=== PATIENT | male | born 1995 | race Caucasian/White ===

== ENCOUNTER 2016-10-19 03:10 | Emergency (ER) | payer OTHER ==
[~2016-10-19] VITALS: Ht 188 cm; Wt 115.0 kg
[2016-10-19 03:23] VITALS: TEMP 36.6; Ht 188 cm; Wt 115.0 kg
[2016-10-19 03:38] LABS: MANUAL MICROSCOPIC REQUIRED? NO; REVIEW REQ? NO; URINE APPEARANCE CLOUDY (CLEAR); URINE BILIRUBIN NEG (NEG); URINE COLOR DK YELLOW; URINE EPITHELIAL CELL AUTO 20-30 /lpf (0-5); URINE NITRITE NEG (NEG); URINE SPECIFIC GRAVITY 1.036 (1.000-1.030); UROBILINOGEN NEG (NEG); ZZUR CULT IF INDIC CLEAN CATCH NO
[2016-10-19] MEDS ORDERED: ONDANSETRON INJ 2 MG/ML 2 ML VIAL IV STA (03:59)
[2016-10-19] MEDS ORDERED: HYDROmorphone INJ 1 MG/ML SYR IV STA (03:59)
[2016-10-19 04:01] LABS: HEMATOCRIT 42.4 % (42-52); MEAN CELL VOLUME 87.4 fL (80-100); MEAN CORPUSCULAR HEMOGLOBIN 28.9 pg (25-34); MEAN PLATELET VOLUME 9.7 fL (7.4-10.4); PLATELET COUNT 221 K/uL (130-400); RED BLOOD COUNT 4.85 M/uL (4.7-6.1)
[2016-10-19 04:06] LABS: BUN/CREATININE RATIO 14.2 (10-20); CALCIUM 8.5 mg/dl (8.5-10.1); POTASSIUM 3.3 mmol/L (3.5-5.1)
[2016-10-19] MEDS ORDERED: OXYC1TAB3 PO (05:39)
[2016-10-19 05:41] VITALS: BP 158/82; PULSE 64; O2SAT 97
--- NOTE | 2016-10-19 06:12 | EMERGENCY ROOM VISIT NOTE ---
History Report prepared by Lu: Maxime Cherry Under the Supervision of: Dr. Alyx Rivera M.D. First contact with patient: 03:36 Chief Complaint: FLANK PAIN Stated Complaint: FLANK PAIN History of Present Illness The patient is a 21 year old male who presents to the Emergency Room with complaints of right flank pain that began this morning at 0215, roughly 1 hour prior to arrival. The patient describes his pain as "sharp" and states that it does not radiate from the right flank. He rates the pain as a 20 out of 10 in severity. He also complains of an increase in urinary frequency and urgency. The patient has not taken any medications for his pain. 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 A total of 10 systems reviewed and were otherwise negative. Past Medical & Surgical No significant past medical/surgical histories. Family History No pertinent family histories discussed. Social History Smoking Status: Never Smoker Marital Status: single Housing Status: lives with roommate Occupation Status: [employer] student Current/Historical Medications Scheduled PRN Oxycodone Immediate Rel Tab (Roxicodone Ir), 1-2 TAB PO Q4H PRN for Severe Pain Allergies Coded Allergies: No Known Allergies (Unverified , 10/19/16) Physical Exam Vital Signs Date Time Temp Pulse Resp B/P Pulse Ox O2 Delivery O2 Flow Rate FiO2 10/19/16 05:41 64 18 158/82 97 Room Air 10/19/16 04:50 72 18 172/80 93 Room Air 10/19/16 03:23 36.6 80 22 167/102 98 Room Air Physical Exam Vital signs reviewed. General: Well-appearing 21-year-old male, in no significant distress. HEENT: No scleral icterus, PERRLA, neck supple. Atraumatic. Cardiovascular: Regular rate and rhythm, no extra sounds. Pulmonary: Clear to auscultation bilaterally, normal work of breathing. Abdomen: Soft, mild RLQ tenderness, no rebounding or guarding, nondistended, positive bowel sounds. Musculoskeletal: Atraumatic, no peripheral edema. Back: No CVA tenderness. Atraumatic Neurologic: Patient awake alert and oriented x 3 Skin: Warm, dry, no rash Medical Decision & Procedures ER Provider Diagnostic Interpretation: Radiology results as stated below per my review and radiologist interpretation: CT ABDOMEN & PELVIS: Impression: There is a 1-2 mm calculus at the right UVJ which causes minimal hydroureteronephrosis. Additional Findings: The visualized lower thorax is unremarkable. The liver, gallbladder, spleen, pancreas, and adrenal glands are unremarkable. The appendix is unremarkable. The stomach, small bowel, colon are unremarkable. No free fluid. No free air. No acute osseous abnormality. Radiologist: Kishan Red MD. Laboratory Results 10/19/16 03:20 10/19/16 03:20 Test 10/19/16 03:20 10/19/16 03:26 Red Blood Count 4.85 M/uL (4.7-6.1) Mean Corpuscular Volume 87.4 fL (80-100) Mean Corpuscular Hemoglobin 28.9 pg (25-34) Mean Corpuscular Hemoglobin Concent 33.0 g/dl (32-36) RDW Standard Deviation 41.1 fL (36.4-46.3) RDW Coefficient of Variation 12.8 % (11.5-14.5) Mean Platelet Volume 9.7 fL (7.4-10.4) Anion Gap 7.0 mmol/L (3-11) Est Creatinine Clear Calc Drug Dose 158.9 ml/min Estimated GFR () 125.0 Estimated GFR (Non- 107.9 BUN/Creatinine Ratio 14.2 (10-20) Calcium Level 8.5 mg/dl (8.5-10.1) Urine Color DK YELLOW Urine Appearance CLOUDY (CLEAR) Urine pH 6.0 (4.5-7.5) Urine Specific [place] 1.036 (1.000-1.030) Urine Protein TRACE (NEG) Urine Glucose (UA) NEG (NEG) Urine Ketones NEG (NEG) Urine Occult Blood 3+ (NEG) Urine Nitrite NEG (NEG) Urine Bilirubin NEG (NEG) Urine Urobilinogen NEG (NEG) Urine Leukocyte Esterase NEG (NEG) Urine WBC (Auto) 1-5 /hpf (0-5) Urine RBC (Auto) >30 /hpf (0-4) Urine Hyaline Casts (Auto) 1-5 /lpf (0-5) Urine Epithelial Cells (Auto) 20-30 /lpf (0-5) Urine Bacteria (Auto) NEG (NEG) Laboratory results per my review. Medications Administered Medications (Trade) Dose Ordered Sig/Letty Route Start Time Stop Time Status Last Admin Dose Admin Hydromorphone HCl (Dilaudid Inj) 1 mg NOW STAT IV 10/19/16 03:59 10/19/16 04:00 DC 10/19/16 04:06 1 MG Ondansetron HCl (Zofran Inj) 4 mg NOW STAT IV 10/19/16 03:59 10/19/16 04:00 DC 10/19/16 04:05 4 MG ED Course 0359: Past medical records reviewed. The patient was evaluated in room B3. A complete history and physical examination was performed. 0359: Ordered Zofran 4 mg IV, Dilaudid 1 mg IV. 0551: Upon reevaluation, the patient appeared to have improvement of his symptoms. I discussed findings with him. He verbalized agreement of the treatment plan. The patient was discharged home. Medical Decision Differential diagnosis: Etiologies such as renal colic, appendicitis, diverticulitis, mesenteric ischemia, aortic pathology, infections, inflammatory bowel disease, PUD, biliary pathology, UTI, as well as others were entertained. This patient was evaluated and appeared to be in significant discomfort. IV access was obtained and laboratory work was drawn. Patient was hydrated with normal saline solution, given IV Dilaudid and Zofran. Patient's physical exam is consistent with ureteral colic. The patient was sent for CAT scan of the abdomen and pelvis which is significant for a one to 2 mm stone at the right UVJ. On reevaluation, the patient was feeling much improved. Urinalysis is indicative of blood. Laboratory work is fairly unrevealing. Patient was discharged with a prescription for OxyIR. He was advised not to drive on this medication. He will use ibuprofen as needed for less severe pain. He will drink plenty of fluids and follow-up with [facility] and urology as needed. He will return to the ER for worsening of symptoms or any medical concerns. Impression Primary Impression: Right ureteral stone Additional Impression: Renal colic on right side Scribe Attestation The scribe's documentation has been prepared under my direction and personally reviewed by me in its entirety. I confirm that the note above accurately reflects all work, treatment, procedures, and medical decision making performed by me. Departure Information Dispostion Home / Self-Care Prescriptions Oxycodone Immediate Rel Tab (ROXICODONE IR) 5 Mg Tab 1-2 TAB PO Q4H Y for Severe Pain, #24 TAB Prov: Alyx Rivera M.D. 10/19/16 Forms HOME CARE DOCUMENTATION FORM, IMPORTANT VISIT INFORMATION Patient Instructions Kidney Stones, My [facility] Additional Instructions Diagnosis: Kidney stone Strain all of your urine and take the stone for analysis. Increase fluids. Ibuprofen 600 mg every 6 hours as needed for pain. Oxy IR 1-2 tablets every 4- 6 hrs as needed for worse pain. No driving, working, or alcohol use with Oxy IR. Follow up with S and urology if it has not passed in 5-7 days or sooner for worsening symptoms. Follow up sooner for fever >101, vomiting, or significant increase in pain not controlled with medication. Problem Qualifiers
--- NOTE | 2016-10-19 07:47 | DIAGNOSTIC IMAGING REPORT ---
CT SCAN OF THE ABDOMEN AND PELVIS WITHOUT CONTRAST CLINICAL HISTORY: Right flank pain COMPARISON STUDY: No previous studies for comparison. TECHNIQUE: CT scan of the abdomen and pelvis was performed from the lung bases to the proximal femurs. Images are reviewed in the axial, sagittal, and coronal planes. IV contrast was not administered for this examination. CT DOSE: 1439.46 mGy.cm FINDINGS: Lower chest: There are minor dependent atelectatic changes. Liver: The unenhanced liver is normal in size, contour, and attenuation. There is no intrahepatic biliary ductal dilatation. Gallbladder: Unremarkable. Spleen: Normal in size and attenuation. Pancreas: Unremarkable. Adrenal glands: Unremarkable. Kidneys: There is a punctate upper pole right renal calculus. There is minimal fullness the right renal collecting system. There is a 2 mm calculus at the level of the right ureterovesical junction. Bowel: There are no transition zones indicate bowel obstruction. The appendix appears normal. There is no acute diverticulitis. Peritoneum: There is no intraperitoneal free air or abdominal ascites. Vasculature: The abdominal aorta is normal in course and caliber. Adenopathy: None. Pelvic viscera: The bladder, and pelvic viscera are unremarkable. Skeletal structures: No destructive osseous lesions are seen. IMPRESSION: 1. 2 mm calculus at the level of the right ureterovesical junction with minimal secondary obstructive changes 2. Punctate upper pole right renal calculus 3. No evidence of bowel obstruction. No evidence of free air. Normal appendix. Electronically signed by: Ryan Prince M.D. 10/19/2016 7:45 AM Dictated Date/Time: 10/19/2016 7:41 AM
== END 2016-10-19 05:47 | disposition home or self-care (01) ==
LOC: EDBD 03:10 → C.EDB 03:12
DX: N20.1 Calculus of ureter (principal); N23 Unspecified renal colic

== ENCOUNTER 2017-05-02 22:30 | Inpatient (IN) | payer OTHER ==
[~2017-05-02] VITALS: Ht 188 cm; Wt 115.0 kg
--- NOTE | 2017-05-02 23:03 | EMERGENCY ROOM VISIT NOTE ---
History Report prepared by Lu: Linette Brown Under the Supervision of: Dr. Rafi Mclean M.D. First contact with patient: 22:38 Chief Complaint: MENTAL HEALTH EVALUATION Stated Complaint: MHID History of Present Illness The patient is a 21 year old male who presents to the Emergency Room for evaluation of depression. Notes girlfriend broke up with him last month. He says he was dealing with this alright until today when he started feeling very depressed. He notes he does not know why he all of the sudden started feeling sad. Notes this rapidly worsened throughout the day until it get severe this evening. He used a razor blade and tried cutting his left wrist. Bleeding with this controlled with pressure. Police arrived and brought him to ED. He states he is now not sure if this was a suicide attempt or not. He denies history of depression nor suicide nor mental health evals in past. Admits his mother knows he has been feeling sad recently. Nothing makes depression better nor worse. Denies drug/etoh use other than periodic marijuana. No medication overdose. No hallucinations. Denies medical issues other than ankle injury which is old. No medications on a daily basis. Source of History: patient Onset: this evening Position: other (global) Quality: other (global) Timing: other (episode) Note: The patient denies medication overdose and hallucinations. Review of Systems See HPI for pertinent positives & negatives. A total of 10 systems reviewed and were otherwise negative. Past Medical & Surgical Medical Problems: (1) Depression Family History Patient reports no known family medical history. Social History Smoking Status: Never Smoker Drug Use: marijuana Marital Status: single Housing Status: lives with roommate Occupation Status: [employer] student Current/Historical Medications No Active Prescriptions or Reported Meds Allergies Coded Allergies: No Known Allergies (Unverified , 05/02/17) Physical Exam Vital Signs Date Time Temp Pulse Resp B/P (MAP) Pulse Ox O2 Delivery O2 Flow Rate FiO2 05/03/17 01:29 82 18 157/86 98 Room Air 05/02/17 22:43 36.6 93 18 160/103 97 Room Air Physical Exam GENERAL: Patient is well appearing and in no acute distress. HEENT: No acute trauma, normocephalic atraumatic, mucous membranes moist, no nasal congestion, no scleral icterus. NECK: No stridor, no adenopathy, no meningismus, trachea is midline. LUNGS: No dyspnea. Clear to auscultation and equal bilaterally. No wheeze, no rhonchi. HEART: Regular rate and rhythm. No murmurs, rubs, gallops appreciated. ABDOMEN: Soft, nontender, bowel sounds positive, no masses appreciated, no peritonitis. BACK: No midline tenderness, no CVA tenderness EXTREMITIES: Normal motion all extremities, no cyanosis, no edema. NEUROLOGIC: Alert and oriented, no acute motor or sensory deficits, no focal weakness, cranial nerves grossly intact. SKIN: 4 cm superficial abrasions with no tendon/nerve/arterial injury left wrist. No rash, no jaundice, no diaphoresis. Psych: Depressed, unsure if suicidal, denies hallucination, denies homicidal ideation Medical Decision & Procedures Laboratory Results 05/02/17 23:43 Red Blood Count 4.84, Mean Corpuscular Volume 87.6, Mean Corpuscular Hemoglobin 29.1, Mean Corpuscular Hemoglobin Concent 33.3, Mean Platelet Volume 9.8, Neutrophils (%) (Auto) 67.9, Lymphocytes (%) (Auto) 20.2, Monocytes (%) (Auto) 8.8, Eosinophils (%) (Auto) 2.6, Basophils (%) (Auto) 0.5, Neutrophils # (Auto) 7.02, Lymphocytes # (Auto) 2.09, Monocytes # (Auto) 0.91, Eosinophils # (Auto) 0.27, Basophils # (Auto) 0.05 05/02/17 23:43 Test 05/02/17 22:45 05/02/17 23:43 Urine Color DK YELLOW Urine Appearance CLOUDY (CLEAR) Urine pH 5.5 (4.5-7.5) Urine Specific [place] 1.036 (1.000-1.030) Urine Protein 2+ (NEG) Urine Glucose (UA) NEG (NEG) Urine Ketones TRACE (NEG) Urine Occult Blood NEG (NEG) Urine Nitrite NEG (NEG) Urine Bilirubin 1+ (NEG) Urine Urobilinogen NEG (NEG) Urine Leukocyte Esterase NEG (NEG) Urine WBC (Auto) 1-5 /hpf (0-5) Urine RBC (Auto) 0-4 /hpf (0-4) Urine Hyaline Casts (Auto) 10-30 /lpf (0-5) Urine Epithelial Cells (Auto) >30 /lpf (0-5) Urine Bacteria (Auto) NEG (NEG) Urine Renal Epithelial Cells /lpf (0-5) Urine Pathogenic Casts 5-10 GRANULAR CASTS /lpf (0) Urine Mucus PRESENT (NONE PRSENT) Urine Opiates Screen NEG (NEG) Urine Methadone, Qualitative NEG (NEG) Urine Barbiturates NEG (NEG) Urine Phencyclidine (PCP) Level NEG (NEG) Ur Amphetamine/Methamphetamine NEG (NEG) MDMA (Ecstasy) Screen NEG (NEG) Urine Benzodiazepines Screen NEG (NEG) Urine Cocaine Metabolite NEG (NEG) Urine Marijuana (THC) POS (NEG) White Blood Count 10.34 K/uL (4.8-10.8) Red Blood Count 4.84 M/uL (4.7-6.1) Hemoglobin 14.1 g/dL (14.0-18.0) Hematocrit 42.4 % (42-52) Mean Corpuscular Volume 87.6 fL (80-100) Mean Corpuscular Hemoglobin 29.1 pg (25-34) Mean Corpuscular Hemoglobin Concent 33.3 g/dl (32-36) Platelet Count 235 K/uL (130-400) Mean Platelet Volume 9.8 fL (7.4-10.4) Neutrophils (%) (Auto) 67.9 % Lymphocytes (%) (Auto) 20.2 % Monocytes (%) (Auto) 8.8 % Eosinophils (%) (Auto) 2.6 % Basophils (%) (Auto) 0.5 % Neutrophils # (Auto) 7.02 K/uL (1.4-6.5) Lymphocytes # (Auto) 2.09 K/uL (1.2-3.4) Monocytes # (Auto) 0.91 K/uL (0.11-0.59) Eosinophils # (Auto) 0.27 K/uL (0-0.5) Basophils # (Auto) 0.05 K/uL (0-0.2) RDW Standard Deviation 41.7 fL (36.4-46.3) RDW Coefficient of Variation 13.0 % (11.5-14.5) Immature Granulocyte % (Auto) 0.0 % Immature Granulocyte # (Auto) 0.00 K/uL (0.00-0.02) Anion Gap 8.0 mmol/L (3-11) Est Creatinine Clear Calc Drug Dose 170.9 ml/min Estimated GFR () 136.5 Estimated GFR (Non- 117.8 BUN/Creatinine Ratio 8.0 (10-20) Calcium Level 8.8 mg/dl (8.5-10.1) Total Bilirubin 0.5 mg/dl (0.2-1) Aspartate Amino Transf (AST/SGOT) 21 U/L (15-37) Alanine Aminotransferase (ALT/SGPT) 29 U/L (12-78) Alkaline Phosphatase 92 U/L (45-117) Total Protein 6.9 gm/dl (6.4-8.2) Albumin 4.0 gm/dl (3.4-5.0) Globulin 2.8 gm/dl (2.5-4.0) Albumin/Globulin Ratio 1.4 (0.9-2) Thyroid Stimulating Hormone (TSH) 2.860 uIu/ml (0.300-4.500) Salicylates Level < 1.7 mg/dl (2.8-20) Acetaminophen Level < 2 ug/ml (10-30) Ethyl Alcohol mg/dL < 3.0 mg/dl (0-3) Laboratory results as reviewed by me. ED Course 2238: The patient was evaluated in room A6. A complete history and physical exam was performed. 0007: I reevaluated the patient and he is agreeable to inpatient treatment. 0228: The patient was accepted to [address] [place] [address]. Medical Decision Differential: Mood Disorder, Overdose, Infectious, Electrolyte Abnormality, Cardiac, Hepatic, Endocrine, Toxicologic, Neurologic, amongst other pathologies entertained. 21 yr old depressed male with worsening depression over the last month. Clearly minimizing what is much more issues than he is willing to let on. No set up support as outpatient. Medically clear. I discussed my concerns with him and after discussion between him, Isacc and myself patient wishing to sign self in voluntarily. Medication Reconcilliation Current Medication List: was personally reviewed by me Blood Pressure Screening Patient's blood pressure: Elevated blood pressure Will be further monitored. Impression Primary Impression: Depression Additional Impression: Deliberate self-cutting Scribe Attestation The scribe's documentation has been prepared under my direction and personally reviewed by me in its entirety. I confirm that the note above accurately reflects all work, treatment, procedures, and medical decision making performed by me. Departure Information Dispostion Mental Health Acute Care Prescriptions No Active Prescriptions or Reported Meds Referrals [facility] (PCP) Patient Instructions My [facility] Problem Qualifiers
[2017-05-02 23:18] LABS: URINE APPEARANCE CLOUDY (CLEAR); URINE COLOR DK YELLOW; URINE EPITHELIAL CELL AUTO >30 /lpf (0-5); URINE NITRITE NEG (NEG); URINE PH 5.5 (4.5-7.5); URINE SPECIFIC GRAVITY 1.036 (1.000-1.030); UROBILINOGEN NEG (NEG); ZZUR CULT IF INDIC CLEAN CATCH NO
[2017-05-03 00:01] LABS: MANUAL MICROSCOPIC REQUIRED? NO; REVIEW REQ? YES; URINE BILIRUBIN 1+ (NEG)
[2017-05-03 00:03] LABS: BASO % 0.5 %; BASO ABS # 0.05 K/uL (0-0.2); COMPLETE YES; EOS % 2.6 %; HEMATOCRIT 42.4 % (42-52); LYMPH % 20.2 %; LYMPH ABS # 2.09 K/uL (1.2-3.4); MEAN CELL VOLUME 87.6 fL (80-100); MEAN CORPUSCULAR HEMOGLOBIN 29.1 pg (25-34); MEAN CORPUSCULAR HGB CONC 33.3 g/dl (32-36); MEAN PLATELET VOLUME 9.8 fL (7.4-10.4); MONO % 8.8 %; NEUT % 67.9 %; PLATELET COUNT 235 K/uL (130-400); RED BLOOD COUNT 4.84 M/uL (4.7-6.1); WHITE BLOOD COUNT 10.34 K/uL (4.8-10.8)
[2017-05-03 00:20] LABS: URINE MUCUS PRESENT (NONE PRSENT); URINE PATH CASTS 5-10 GRANULAR CASTS /lpf (0)
[2017-05-03 00:21] LABS: CALCIUM 8.8 mg/dl (8.5-10.1); CREATININE 0.93 mg/dl (0.60-1.40); POTASSIUM 3.5 mmol/L (3.5-5.1)
[2017-05-03 00:31] LABS: ALB/GLOB RATIO 1.4 (0.9-2); THYROID STIMULATING HORMONE 2.86 uIu/ml (0.300-4.500)
[2017-05-03 00:33] LABS: ACETAMINOPHEN < 2 ug/ml (10-30)
[2017-05-03 00:33] LABS: BENZODIAZEPINE, URINE NEG (NEG); COCAINE,URINE NEG (NEG); PHENCYCLIDINE, URINE NEG (NEG)
[2017-05-03] MEDS ORDERED: NURSING VERBAL MED ORDER ONE (02:30)
[2017-05-03 02:58] VITALS: BP 138/79; PULSE 89; TEMP 36.6; Ht 188 cm; Wt 115.0 kg
[2017-05-03 03:10] VITALS: O2SAT 99
[2017-05-03] MEDS ORDERED: SODIUM CHLORIDE 0.65% NA SOLN 45 ML (OCEAN) PRN (03:30)
[2017-05-03] MEDS ORDERED: MAGNESIUM HYDROXIDE SUSP 30 ML UDC PO PRN (03:30)
[2017-05-03] MEDS ORDERED: BISMUTH SUBSALICYLATE PER ML OMNICELL CHARGE PO PRN (03:30)
[2017-05-03] MEDS ORDERED: ACETAMINOPHEN 325 MG TAB PO PRN (03:30)
[2017-05-03] MEDS ORDERED: hydrOXYzine HCL 25 MG TAB PO PRN ×2 (03:30)
[2017-05-03] MEDS ORDERED: ALUMINUM/MAGNESIUM SUSP 30 ML UDC PO PRN (03:30)
[2017-05-03 06:51] VITALS: BP_SYST 132; BP_SYST 143; BP_DIAS 68; BP_DIAS 76; PULSE 59; PULSE 80; TEMP 36.6
--- NOTE | 2017-05-03 10:41 | Medical Student: BHU Only ---
Psychiatric Evaluation IDENTIFYING DATA: Kutr Tidwell is a 21-year-old male who currently lives in [place] as a student at [employer]. He lives in the dorms on campus. Kurt Tidwell was admitted to the [facility] on a 201 voluntary commitment. Kurt Tidwell was brought to the hospital after friends called EMS for help when Kurt told them he cut his wrist. Information provided by Kurt is perceived to be accurate and reliable. CHIEF COMPLAINT: "Really sad". HISTORY OF PRESENT ILLNESS: Kurt is a 21 year old male [employer] [facility] [employer] student who is voluntarily admitted to the [facility] secondary to cutting his left wrist on 05/02/17 at 2300. The patient recently broke up with his girlfriend of 2 years this past March. The patient and his ex-girlfriend met at a branch [facility]. They had been fighting a lot recently and in March she told him she wanted to break up. The patient has not had any contact with her since the breakup. Since that time , he reports his mood has been "going up and down everyday", with an overall trend downward. He has not identified any triggers/reason for why he has good days or bad days. He has no prior psychiatric history and has never been treated for depression. Last night, he reports being very anxious and "in a fog." He then took a boxcutter and cut his left wrist while in his dorm room. He shortly thereafter called a friend and told him what he had done. The friend called EMS who brought him the [facility] for evaluation. No stitches were needed as it was a superficial cut to his wrist. Initially, he reported that he was unsure if this was a suicide attempt. He has since decided that it was not an attempt at suicide, but rather "a way to make all the anxious feelings fade." The patient denied being under the influence of any substances at the time of cutting his wrist. He no longer has any feelings of wanting to hurt himself. He is unsure what prompted his cutting last night as there were no specific triggering events throughout the day. The patient denies feeling paranoid, having hallucinations/delusions, belinda, or obsessive/compulsive behavior. He has been sleeping an average of 6-10 hours/ night. His appetite has been good. He feels rested after sleeping. He has lost 19lbs over the past two months after recently starting an exercise program. Risk of violence to self within the last 6 months: Yes, patient cut his left wrist with a drink box mechanic at 2300 on 05/02/17. Risk of violence to others within the last 6 months: No CURRENT MEDICATIONS: 1. None PAST PSYCHIATRIC HISTORY: Current outpatient mental health treatment: None Prior outpatient mental health treatment: None Prior psychiatric hospitalizations: None Prior medication trials: None Prior suicide attempts: None Access to weapons: ream cutter. PAST MEDICAL HISTORY: medical history: Kidney stone in 2016 surgical history: None history of head injury: None history of seizure: None history of iv drug use: None ALLERGIES: None FAMILY HISTORY: Mental Health: Older brother has high functioning autism. He is currently in graduate school Substance Abuse: None Suicide: None SUBSTANCE USE HISTORY: Tobacco use hx: None Caffeine use hx: Occassional Alcohol use hx: Occassional. Claims he drinks every 1-2 months Marijuana use hx: Occassional. Does not smoke regularly. Illicit drug use hx: None PERSONAL HISTORY: Born: [facility]. Parents still live there. Early development: None Siblings: One older brother who has autism and is a student life dean. Education: Patient is a student at [employer] studying [employer]. His GPA is 2.6. Work History: Student Relationship History: Recent breakup with girlfriend of 2 years Children: None Legal History: None Physical abuse history: No Emotional/psychological abuse history: No Sexual abuse history: No ROS: CONSTITUTIONAL: Depressed. CARDIOVASCULAR: No CP, palpitations, lightheadedness. RESPIRATORY: No SOB or wheezing. Denies cough or sore throat GASTROINTESTINAL: Recent diarrhea secondary to Abx use with otitis media infection. Diarrhea has since resolved. NEUROLOGICAL: Denies headaches or visual changes MUSCULOSKELETAL: No joint or muscle aches. PSYCHIATRIC: Depressed and anxious ENDOCRINOLOGIC: Recent intentional weight loss of 19lbs over past 2 months. ALLERGIES: None Labs, studies, imaging: Positive for marijuana on toxicology screen. PHYSICAL EXAM: MENTAL STATUS EXAM: Appearance is that of a disheveled male who appears his stated age. The patient is cooperative with the interview. Eye contact is present throughout interview. Motor behavior is normal. Speech: volume and rate, and tone are normal. Affect: Flattened. Mood: Depressed. Thought process: goal directed and logical. His speech was a constant rate and seemed to flow freely. Thought content: Kurt did not exhibit any signs of a thought disorder. He was able to answer questions appropriately and directly. There did not appear to be any thought blocking. Perception: Normal perception. Symptoms like illusions, depersonalization, or misinterpretations were not elicited during exam. Cognition: The patient is oriented to person, time, and place. He was able to answer questions and recall past events of his life without difficulty. INVENTORY OF ASSETS: * strengths: Kurt appears to be a bright young man. He has friends at school that care about him (i.e. A friend called an ambulance for him to come to the hospital after cutting his left wrist.) He seems to have a supportive family who is coming to visit him today. He has a good exercise routine and has recently lost 20lbs over a two month period. He seems motivated in life and does not display many symptoms of severe depresion. * resources: Patient has friends at school and a supportive family at home. * needs: Patient will need set up with outpatient support through a counselor. We will set this up for him prior to discharge. RISK ASSESSMENT: * Risk factors: Male, and single. * Protective factors: Stable relationships, Supportive family, Good rapport with provider, and impulsive attempt. DIAGNOSTIC IMPRESSION: The patient is a 21 year old male who presents after making a superficial cut on his left wrist with a drink box mechanic. This incident occurred as a result of the patient trying to "distract himself" from his depressive and anxiety symptoms that have been ongoing since a breakup with his ex-girlfriend in March. The patient denies this being a suicide attempt, but rather states he was "in a fog ". This appears to be an impulsive action and not something Kurt had planned on doing. I do not believe he is suicidal. I believe he is suffering from a major depressive episode. He is currently voluntarily admitted to the [facility]. Unfortunately, our unit is out of network and insurance is requesting he be transferred to another location for treatment. DSM-V DIAGNOSIS: Major Depressive Disorder RECOMMENDATIONS: 1. Major Depressive Disorder a. It is unclear at this time if the patient would benefit from medication. His depressive symptoms wax and wane greatly from day to day. At this time, we will hold off on medication. This decision may change as the patient appears to be minimizing his symptoms. We will meet with his mother this afternoon and see if we are able to get more background information on the patient's recent mental health status prior to hospitalization. b. Patient has been encouraged to participate in group therapy sessions. c. We will set the patient up with an outpatient counselor for him to see on campus upon discharge. 2. Suicide precautions will be maintained to help provide for patient safety while in the hospital Date of Service: May 03, 2017.
--- NOTE | 2017-05-03 10:56 | Psychiatric History & Physical ---
History Date of Service May 03, 2017. Identifying Data Kurt Tidwell is a 21-year-old male who is currently a [employer], who presented to the emergency department by ambulance last evening after having made a superficial cut to his left wrist in the setting of extreme depression. He is admitted voluntarily. Information is gathered from the patient and considered to be reliable. Chief Complaint "I just got really sad.". History of Present Illness The patient is a 21-year-old [employer] ru[employer] who is not currently in any kind of mental health treatment, who presented to our emergency department with severe depression and suicidality. His primary stress is that of a breakup with a girlfriend in March of this year. They had been together for 2 years after having met at a [facility]. He notes that they had been arguing of late but he describes that she suddenly told him that she was done and no longer wanted to be in a relationship. Since then he says that his mood has been "up and down". There is no pattern to it, no triggers for the bad days. Yesterday, he was in his dorm room. At about 11 PM he describes that he took a cook box filler to his left wrist making a superficial cut. He says that he can't really say what was on his mind because it was "all a haze" he has never made any sort of self-injurious act before. After cutting his wrist, he called a friend who then came over and called the ambulance to bring him to the emergency room. By the time he reached the emergency room he was saying he was not sure if it was a suicide attempt or not. Today the patient is anxious about being in the hospital and may be minimizing his symptoms. He reports that he still feels depressed but is denying acute suicidal thinking today. He reports his sleep has been variable getting anywhere from 6-10 hours of sleep per night. His appetite has been okay although he has been going to the gym and attempting to lose weight and has lost 19 pounds over the last 2-1/2 months. He denies chronic anxiety although says he is anxious about being here in the hospital. His energy is "pretty good ". He denies any history of self-injurious behaviors. He denies any evidence of thought disorder now or at any time in the past. He denies any symptoms of OCD. He denies any discrete episodes of euphoric mood, sleeplessness or pleasure seeking behaviors that would be congruent with a bipolar disorder. Past Psychiatric History Current OP Treatment: no current treatment Prior OP Treatment: no prior treatment Prior Psych Hospitalizations: none Access to a Gun: No Suicide Attempts: No Past Medication Trials None Past Medical/Surgical History History of Concussion/Seizure: No (1) History of nephrolithiasis Allergies Allergies: Coded Allergies: No Known Allergies (Unverified , 05/02/17) Home Medications No Active Prescriptions or Reported Meds Family History Patient reports no known family medical history. History of Suicide: No History of Substance Abuse: No Psychiatric History: Yes (Brother with autism) Alcohol Use Alcohol Use In Past 12 Months: Yes ("maybe 1 x every few months") AUDIT Total Score: 1 Smoking Use Smoking Status: Never Smoker Substance History Admits to occasional use of cannabis Personal History Lives in: lives in [facility] when not at school Childhood: Raised by both parents. Father is disabled, mother works for an insurance agency. 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 of 2.6) Relationship History: never Children: none Legal History: none Psychological Trauma History: Significant Loss Review of Systems Constitutional: denies no symptoms reported, denies see HPI, denies chills, denies diaphoresis, denies fever, denies malaise, denies weakness, denies other Eyes: denies: no symptoms, as stated in HPI, eye pain, tearing, itching, redness, discharge, double vision, visual changes, blurred vision, photophobia, other ENT: denies: no symptoms reported, see HPI, ear pain, ear discharge, loss of hearing, tinnitus, nasal pain, nasal congestion, rhinorrhea, epistaxis, sore throat, stidor, throat swelling, mouth pain, mouth swelling, dental pain, gum swelling, other Cardiovascular: denies: no symptoms reported, see HPI, chest pain, chest tightness, chest pressure, diaphoresis, palpitations, syncope, other Respiratory: denies: no symptoms reported, see HPI, cough, orthopnea, short of breath, stridor, wheezing, sputum production, cyanosis, [place], PND, other Gastrointestinal: denies no symptoms reported, denies see HPI, denies abdominal pain, denies constipation, denies diarrhea, denies nausea, denies vomiting, denies other Genitourinary - Male: denies: no symptoms, see HPI, rash, amenorrhea, penile itching, penile discharge, testicular pain, testicular swelling, impotence, other Musculoskeletal: denies no symptoms reported, denies see HPI, denies back pain , denies gout, denies joint pain, denies joint swelling, denies muscle pain, denies muscle stiffness, denies neck pain, denies other Integumentary: denies no symptoms reported, denies see HPI, denies change in color, denies change in hair/nails, denies dryness, denies lesions, denies lumps , denies rash, denies other Neurologic: denies: no symptoms, see HPI, headache, numbness, paresthesias, pre -existing deficit, seizure, tingling, tremors, general weakness, tics, focal weakness, vertigo, lethargy, memory loss, dizziness, other Endocrine: denies: no symptoms, as stated in HPI, cold intolerance, heat intolerance, hair changes, goiter, polydipsia, polyuria, skin changes, other Hematologic / Lymphatic: denies: no symptoms, as stated in HPI, abnormal clotting, adenopathy, anemia, easy bleeding, easy bruising, gums bleeding, petechiae, other Examination Physical Examination Exam performed by Dr. Mclean in the emergency Department has been reviewed and accepted as medical clearance for our unit Vital Signs Vital Signs Past 12 Hours Date Time Temp Pulse Resp B/P (MAP) Pulse Ox O2 Delivery O2 Flow Rate FiO2 05/03/17 06:51 36.6 59 16 143/68 80 132/76 05/03/17 03:10 74 18 138/79 99 05/03/17 02:58 36.6 89 18 138/79 05/03/17 01:29 82 18 157/86 98 Room Air 05/02/17 22:43 36.6 93 18 160/103 97 Room Air Laboratory Results Last 24 Hours Test 05/02/17 22:45 05/02/17 23:43 Urine Color DK YELLOW Urine Appearance CLOUDY Urine pH 5.5 Urine Specific [place] 1.036 Urine Protein 2+ Urine Glucose (UA) NEG Urine Ketones TRACE Urine Occult Blood NEG Urine Nitrite NEG Urine Bilirubin 1+ Urine Urobilinogen NEG Urine Leukocyte Esterase NEG Urine WBC (Auto) 1-5 /hpf Urine RBC (Auto) 0-4 /hpf Urine Hyaline Casts (Auto) 10-30 /lpf Urine Epithelial Cells (Auto) >30 /lpf Urine Bacteria (Auto) NEG Urine Renal Epithelial Cells /lpf Urine Pathogenic Casts 5-10 GRANULAR CASTS /lpf Urine Mucus PRESENT Urine Opiates Screen NEG Urine Methadone, Qualitative NEG Urine Barbiturates NEG Urine Phencyclidine (PCP) Level NEG Ur Amphetamine/Methamphetamine NEG MDMA (Ecstasy) Screen NEG Urine Benzodiazepines Screen NEG Urine Cocaine Metabolite NEG Urine Marijuana (THC) POS White Blood Count 10.34 K/uL Red Blood Count 4.84 M/uL Hemoglobin 14.1 g/dL Hematocrit 42.4 % Mean Corpuscular Volume 87.6 fL Mean Corpuscular Hemoglobin 29.1 pg Mean Corpuscular Hemoglobin Concent 33.3 g/dl Platelet Count 235 K/uL Mean Platelet Volume 9.8 fL Neutrophils (%) (Auto) 67.9 % Lymphocytes (%) (Auto) 20.2 % Monocytes (%) (Auto) 8.8 % Eosinophils (%) (Auto) 2.6 % Basophils (%) (Auto) 0.5 % Neutrophils # (Auto) 7.02 K/uL Lymphocytes # (Auto) 2.09 K/uL Monocytes # (Auto) 0.91 K/uL Eosinophils # (Auto) 0.27 K/uL Basophils # (Auto) 0.05 K/uL RDW Standard Deviation 41.7 fL RDW Coefficient of Variation 13.0 % Immature Granulocyte % (Auto) 0.0 % Immature Granulocyte # (Auto) 0.00 K/uL Sodium Level 144 mmol/L Potassium Level 3.5 mmol/L Chloride Level 108 mmol/L Carbon Dioxide Level 28 mmol/L Anion Gap 8.0 mmol/L Blood Urea Nitrogen 7 mg/dl Creatinine 0.93 mg/dl Est Creatinine Clear Calc Drug Dose 170.9 ml/min Estimated GFR () 136.5 Estimated GFR (Non- 117.8 BUN/Creatinine Ratio 8.0 Random Glucose 100 mg/dl Calcium Level 8.8 mg/dl Total Bilirubin 0.5 mg/dl Aspartate Amino Transf (AST/SGOT) 21 U/L Alanine Aminotransferase (ALT/SGPT) 29 U/L Alkaline Phosphatase 92 U/L Total Protein 6.9 gm/dl Albumin 4.0 gm/dl Globulin 2.8 gm/dl Albumin/Globulin Ratio 1.4 Thyroid Stimulating Hormone (TSH) 2.860 uIu/ml Salicylates Level < 1.7 mg/dl Acetaminophen Level < 2 ug/ml Ethyl Alcohol mg/dL < 3.0 mg/dl Mental Examination During interview pt is: alert and oriented, cooperative Appearance: appropriately dressed, appropriately groomed Eye contact is: good Motor behavior is: steady gait & station, no abnormal motor movements Speech: normal in rate, rhythm & volume Affect: flat Mood is: depressed, anxious Thought process: goal directed Thought content: reality based without delusions Suicidal thought are: present (prior to admission having made a cut to his left wrist) Homicidal thoughts are: denied Hallucinations: denies auditory, denies visual Cognition: memory grossly intact, attention grossly intact, language grossly intact Intelligence estimated to be: average Insight: impaired Judgement: impaired Impression / Recommendations Impression 21 year old [employer] student admitted with severe depression and suicidality after having made a superficial cut to his left wrist. He is anxious about being on the unit, minimizing his symptoms but clearly made an attempt in the setting of severe depression and told his friends that it was a suicide attempt. That having been said, he denies vegetative symptoms and I'm not sure that he would benefit from being on antidepressants at this time. His mother is on her way here to [place] and we will obtain supplemental information from her to confirm that there is no previous pattern of depression or self- injurious behaviors. He will need outpatient counseling and will need to learn more adaptive coping strategies which we will assist him with here. Unfortunately his insurance is out of network and they are asking us to transfer him to another facility which we will be dealing with in the near future. At this time, the patient requires inpatient mental health treatment until we have gathered enough information and mediated risk factors enough to make a safe disposition. Inventory Assets Strengths: Willingness to engage in treatment, support from family Needs: To abstain from cannabis Risk Factors Assessment Male: Yes : Yes /single/: Yes Higher / Fall in social status: No Access to guns: No Health problems: No Mental Health Diagnoses: No Substance use disorders: No Previous attempt: No Previous psychiatric stay: No Hopelessness: No Smoker: No Protective Factors Assessment : No Responsible for young children: No Employed: No Stable relationships: No Supportive family: Yes Recommendations (1) Depression 05/03/17 - I do not think the patient will benefit from antidepressant medications. He is clearly grieving the loss of this relationship. He will need outpatient counseling to continue to process his loss and will need to learn new more adaptive coping strategies. - Family coming to town today and will have a family meeting to confirm no previous history of depression - Insurance is out of network and they're asking us to transfer him to [facility]. I am recommending he stay here as I do not believe that this will need to be a lengthy hospitalization. Has been reviewed with Dr. Farooq Shaffer CPT Code Initial Hospital Care: 17223
[2017-05-04 06:45] VITALS: BP_SYST 110; BP_SYST 115; BP_DIAS 61; BP_DIAS 75; PULSE 56; PULSE 82; TEMP 36.5
--- NOTE | 2017-05-04 13:47 | Psychiatric Progress Notes ---
Progress Note Date of Service May 04, 2017. Interval History 21 year old [employer] [facility] [employer] student admitted with severe depression and suicidality after having made a superficial cut to his left wrist. He is anxious about being on the unit, minimizing his symptoms but clearly made an attempt in the setting of severe depression and told his friends that it was a suicide attempt. That having been said, he denies vegetative symptoms and I'm not sure that he would benefit from being on antidepressants at this time. His mother is on her way here to [facility] and we will obtain supplemental information from her to confirm that there is no previous pattern of depression or self- injurious behaviors. He will need outpatient counseling and will need to learn more adaptive coping strategies which we will assist him with here. Unfortunately his insurance is out of network and they are asking us to transfer him to another facility which we will be dealing with in the near future. At this time, the patient requires inpatient mental health treatment until we have gathered enough information and mediated risk factors enough to make a safe disposition. Chief Complaint "OK". Subjective Patient was seen & assessed interval progress reviewed with Treatment Team. The patient has adjusted to the unit and is much less anxious today. He says he has been attending groups. He denies any further thoughts of suicide or life not being worth living, and continues to deny that he was depressed at any point prior to the break up. Family meeting held with parents yesterday, and they support him and are available any time he needs them. He had not called them PROCUREMENT OFFICER when sad thinking that they would get tired of it and think that he should be over it by now. His one roommate is aware of the events as he was home at the time. Kurt says that the roommate was surprised that he would attempt to hurt himself. Kurt is agreeable to outpatient counseling. He reports good appetite and sleep, frequently nodding off in the dayroom on the couch. Review of Systems Constitutional: No fever, No chills, No sweats, No weight loss, No weakness, No fatigue, No problem reported ENT: No hearing loss, No unusual epistaxis, No nasal symptoms, No sore throat, No tinnitus, No dental problems, No trouble swallowing, No problem reported Respiratory: No cough, No sputum, No wheezing, No shortness of breath, No dyspnea on exertion, No dyspnea at rest, No hemoptysis, No problem reported Cardiovascular: No chest pain, No orthopnea, No PND, No edema, No claudication , No palpitations, No problem reported Abdomen: No pain, No nausea, No vomiting, No diarrhea, No constipation, No GI bleeding, No problem reported Musculoskeletal: No joint pain, No muscle pain, No swelling, No calf pain, No problem reported Neurologic: No memory loss, No paralysis, No weakness, No numbness/tingling, No vertigo, No balance problems, No problem reported Psychiatric: + depression symptoms (improving) Integumentary: No rash, No itch, No new/changing skin lesions, No color change , No bleeding, No problem reported Sleep Information Total Hours of Sleep: 6.00 Meal Information Percent of Breakfast Consumed: 100 Percent of Lunch Consumed: 100 Percent of Dinner Consumed: 100 Mental Status Exam During interview pt is: alert and oriented, cooperative Appearance: appropriately dressed, appropriately groomed Eye contact is: good Motor behavior is: steady gait & station, no abnormal motor movements Speech: normal in rate, rhythm & volume Affect: blunted Mood is: anxious Thought process: goal directed Thought content: reality based without delusions Suicidal thought are: denied Homicidal thoughts are: denied Hallucinations: denies auditory, denies visual Cognition: memory grossly intact, attention grossly intact, language grossly intact Intelligence estimated to be: average Insight: impaired Judgement: impaired Impression ADjusting to the unit, and without SI today. Still saying that depression is only in the context of relationship breakup, and denies vegetative profile. Is willing for OP counseling and referrals are pending. No recommendations for ADM 's. If outpatient set up could consider discharge tomorrow. Plan (1) Depression 05/03/17 - I do not think the patient will benefit from antidepressant medications. He is clearly grieving the loss of this relationship. He will need outpatient counseling to continue to process his loss and will need to learn new more adaptive coping strategies. - Family coming to town today and will have a family meeting to confirm no previous history of depression - Insurance is out of network and they're asking us to transfer him to [facility]. I am recommending he stay here as I do not believe that this will need to be a lengthy hospitalization. 05/04 - Family meeting held yesterday - Referrals for OP treatment pending. Has been reviewed with Dr. Farooq Shaffer Discharge / Aftercare Planning Primary Care Physician: Name: [facility] Therapist: Name: Britt [facility] Room Rn: Name: Britt Visit Code E&M Code: 99427 Inventory Assets Strengths: Willingness to engage in treatment, support from family Needs: To abstain from cannabis Risk Factors Assessment Male: Yes : Yes /single/: Yes Higher / Fall in social status: No Health problems: No Mental Health Diagnoses: No Substance use disorders: No Previous attempt: No Previous psychiatric stay: No Hopelessness: No Smoker: No Protective Factors Assessment : No Responsible for young children: No Employed: No Stable relationships: No Supportive family: Yes Data Vital Signs Last 24 Hrs: Date Time Temp Pulse Resp B/P (MAP) Pulse Ox O2 Delivery O2 Flow Rate FiO2 05/04/17 06:45 36.5 56 16 110/61 82 115/75 Meds Administered Last 24 Hrs: Meds Administered (Past 24Hrs) Medications (Trade) Dose Ordered Sig/Letty Route Start Time Stop Time Status Last Admin Dose Admin Hydroxyzine HCl (Vistaril Tab) 25 mg Q4H PRN PO 05/03/17 03:30 06/02/17 03:29 05/03/17 03:34 25 MG Lab Results Last 24 Hrs: 05/02/17 23:43 Red Blood Count 4.84, Mean Corpuscular Volume 87.6, Mean Corpuscular Hemoglobin 29.1, Mean Corpuscular Hemoglobin Concent 33.3, Mean Platelet Volume 9.8, Neutrophils (%) (Auto) 67.9, Lymphocytes (%) (Auto) 20.2, Monocytes (%) (Auto) 8.8, Eosinophils (%) (Auto) 2.6, Basophils (%) (Auto) 0.5, Neutrophils # (Auto) 7.02, Lymphocytes # (Auto) 2.09, Monocytes # (Auto) 0.91, Eosinophils # (Auto) 0.27, Basophils # (Auto) 0.05 05/02/17 23:43 Test 05/02/17 22:45 05/02/17 23:43 Urine Color DK YELLOW Urine Appearance CLOUDY (CLEAR) Urine pH 5.5 (4.5-7.5) Urine Specific [place] 1.036 (1.000-1.030) Urine Protein 2+ (NEG) Urine Glucose (UA) NEG (NEG) Urine Ketones TRACE (NEG) Urine Occult Blood NEG (NEG) Urine Nitrite NEG (NEG) Urine Bilirubin 1+ (NEG) Urine Urobilinogen NEG (NEG) Urine Leukocyte Esterase NEG (NEG) Urine WBC (Auto) 1-5 /hpf (0-5) Urine RBC (Auto) 0-4 /hpf (0-4) Urine Hyaline Casts (Auto) 10-30 /lpf (0-5) Urine Epithelial Cells (Auto) >30 /lpf (0-5) Urine Bacteria (Auto) NEG (NEG) Urine Renal Epithelial Cells /lpf (0-5) Urine Pathogenic Casts 5-10 GRANULAR CASTS /lpf (0) Urine Mucus PRESENT (NONE PRSENT) Urine Opiates Screen NEG (NEG) Urine Methadone, Qualitative NEG (NEG) Urine Barbiturates NEG (NEG) Urine Phencyclidine (PCP) Level NEG (NEG) Ur Amphetamine/Methamphetamine NEG (NEG) MDMA (Ecstasy) Screen NEG (NEG) Urine Benzodiazepines Screen NEG (NEG) Urine Cocaine Metabolite NEG (NEG) Urine Marijuana (THC) POS (NEG) White Blood Count 10.34 K/uL (4.8-10.8) Red Blood Count 4.84 M/uL (4.7-6.1) Hemoglobin 14.1 g/dL (14.0-18.0) Hematocrit 42.4 % (42-52) Mean Corpuscular Volume 87.6 fL (80-100) Mean Corpuscular Hemoglobin 29.1 pg (25-34) Mean Corpuscular Hemoglobin Concent 33.3 g/dl (32-36) Platelet Count 235 K/uL (130-400) Mean Platelet Volume 9.8 fL (7.4-10.4) Neutrophils (%) (Auto) 67.9 % Lymphocytes (%) (Auto) 20.2 % Monocytes (%) (Auto) 8.8 % Eosinophils (%) (Auto) 2.6 % Basophils (%) (Auto) 0.5 % Neutrophils # (Auto) 7.02 K/uL (1.4-6.5) Lymphocytes # (Auto) 2.09 K/uL (1.2-3.4) Monocytes # (Auto) 0.91 K/uL (0.11-0.59) Eosinophils # (Auto) 0.27 K/uL (0-0.5) Basophils # (Auto) 0.05 K/uL (0-0.2) RDW Standard Deviation 41.7 fL (36.4-46.3) RDW Coefficient of Variation 13.0 % (11.5-14.5) Immature Granulocyte % (Auto) 0.0 % Immature Granulocyte # (Auto) 0.00 K/uL (0.00-0.02) Anion Gap 8.0 mmol/L (3-11) Est Creatinine Clear Calc Drug Dose 170.9 ml/min Estimated GFR () 136.5 Estimated GFR (Non- 117.8 BUN/Creatinine Ratio 8.0 (10-20) Calcium Level 8.8 mg/dl (8.5-10.1) Total Bilirubin 0.5 mg/dl (0.2-1) Aspartate Amino Transf (AST/SGOT) 21 U/L (15-37) Alanine Aminotransferase (ALT/SGPT) 29 U/L (12-78) Alkaline Phosphatase 92 U/L (45-117) Total Protein 6.9 gm/dl (6.4-8.2) Albumin 4.0 gm/dl (3.4-5.0) Globulin 2.8 gm/dl (2.5-4.0) Albumin/Globulin Ratio 1.4 (0.9-2) Thyroid Stimulating Hormone (TSH) 2.860 uIu/ml (0.300-4.500) Salicylates Level < 1.7 mg/dl (2.8-20) Acetaminophen Level < 2 ug/ml (10-30) Ethyl Alcohol mg/dL < 3.0 mg/dl (0-3)
[2017-05-05 06:51] VITALS: BP_SYST 100; BP_SYST 110; BP_DIAS 62; BP_DIAS 71; PULSE 53; PULSE 69; TEMP 36.4
--- NOTE | 2017-05-05 09:31 | Discharge Instructions ---
Discharge Information Report Includes Report will include the: Discharge Instructions & Summary Admission Admission Date / Time: May 03, 2017 at 02:23 Reason for Admission: Major Depressive Disorder, Single Episode Discharge Discharge Diagnosis / Problem: depression Condition at Discharge: Good Discharge Goals Goal(s): Decrease discomfort, Learn about illness Activity Recommendations Activity Limitations: resume your previous activity . Instructions / Follow-Up Instructions / Follow-Up . SPECIAL CARE INSTRUCTIONS: 1. Follow through with your scheduled aftercare appointments. If unable to keep an appointment, please call to reschedule. 2. Take your medication only as prescribed. Medication should not be changed or stopped without the approval of your doctor. In the event of worsening symptoms or concerns about side effects, contact your doctor immediately. 3. Utilize new healthy coping skills, anger management skills, and stress management skills learned during your hospitalization. Journal feelings and process them with a support person. Identify stressors or situations that may result in relapse, deterioration or inappropriate behaviors and develop a plan to deal with those issues. 4. If your coping skills are ineffective and you are in crisis, contact your outpatient providers for direction. If unable to reach your providers, please call the CAN HELP LINE AT or go to the closest Emergency Room. 5. Avoid alcohol and un-prescribed drugs. 6. You have been provided with the Mental Health Advance Directives Pamphlet for your review. AFTERCARE APPOINTMENTS: * Please call your insurance company prior to your scheduled appointment to confirm your aftercare providers are covered. Take your insurance information to your appointments. . Discharge / Aftercare Planning Primary Care Physician: Name: [facility] Therapist: Name Of Therapist: Kailash Carvalho Date of Appointment: May 09, 2017 Time of Appointment: 2:00pm Appointment Comments: [address] [place] Worker: Name: Britt . Follow-Up Care Plan for Follow-Up Care: The patient is being referred for outpatient therapy Current Hospital Diet Patient's current hospital diet: Regular Diet Discharge Diet Recommended Diet: Regular Diet Procedures Procedures Performed: No Pending Studies Pending Studies at Discharge: No Medical Emergencies . Who to Call and When: Medical Emergencies: For questions or emergencies related to your hospital stay, please contact the Inpatient Behavioral Health Unit at [phone]. A outreach clinician is on-call 23/01 for the Behavioral Health Unit for emergencies At any time you feel your situation is an emergency, you may also call 911 immediately. . Non-Emergent Contact Non-Emergency issues call your: Therapist Advance Directives Existing Advance Directive: No Do You Have an Existing Mental: No Existing Living Will: No Existing Power of Director Of Quality Improvement: No Advance Directives Info Given: To Pt/S.O. Advance Directives Reason: Declines as Mental Health Visit. Discharge Summary Admission HPI Per the Admitting provider: The patient is a 21-year-old [employer] [facility] [employer] [facility] rupert who is not currently in any kind of mental health treatment, who presented to our emergency department with severe depression and suicidality. His primary stress is that of a breakup with a girlfriend in March of this year. They had been together for 2 years after having met at a [facility]. He notes that they had been arguing of late but he describes that she suddenly told him that she was done and no longer wanted to be in a relationship. Since then he says that his mood has been "up and down". There is no pattern to it, no triggers for the bad days. Yesterday, he was in his dorm room. 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 He says that he can't really say what was on his mind because it was "all a haze" he has never made any sort of self-injurious act before. After cutting his wrist, he called a friend who then came over and called the ambulance to bring him to the emergency room. By the time he reached the emergency room he was saying he was not sure if it was a suicide attempt or not. Today the patient is anxious about being in the hospital and may be minimizing his symptoms. He reports that he still feels depressed but is denying acute suicidal thinking today. He reports his sleep has been variable getting anywhere from 6-10 hours of sleep per night. His appetite has been okay although he has been going to the gym and attempting to lose weight and has lost 19 pounds over the last 2-1/2 months. He denies chronic anxiety although says he is anxious about being here in the hospital. His energy is "pretty good ". He denies any history of self-injurious behaviors. He denies any evidence of thought disorder now or at any time in the past. He denies any symptoms of OCD. He denies any discrete episodes of euphoric mood, sleeplessness or pleasure seeking behaviors that would be congruent with a bipolar disorder. Hospital Course (1) Depression 05/03/17 - I do not think the patient will benefit from antidepressant medications. He is clearly grieving the loss of this relationship. He will need outpatient counseling to continue to process his loss and will need to learn new more adaptive coping strategies. - Family coming to [facility] today and will have a family meeting to confirm no previous history of depression - Insurance is out of network and they're asking us to transfer him to [facility]. I am recommending he stay here as I do not believe that this will need to be a lengthy hospitalization. 05/04 - Family meeting held yesterday - Referrals for OP treatment pending. Risk Factors Assessment Male: Yes : Yes /single/: Yes Higher / Fall in social status: No Health problems: No Mental Health Diagnoses: No Substance use disorders: No Previous attempt: No Previous psychiatric stay: No Hopelessness: No Smoker: No Protective Factors Assessment : No Responsible for young children: No Employed: No Stable relationships: No Supportive family: Yes Day of Discharge Assessment COURSE OF HOSPITALIZATION: The patient was on our unit for 2 days. He was admitted after having scratched his left wrist while thinking about a breakup with a girlfriend. He initially indicated it was a suicide attempt but quickly backed off of that saying he is not sure what he hoped to accomplish by cutting his wrist. It did not require sutures. He denied a vegetative profile and insisted that his sad moods came only in the setting of the breakup with the girlfriend. No medications were recommended at this time however we did recommend outpatient counseling which she readily accepted. His parents were quite supportive, came to [facility] to be with him. They supported him making his own decisions about treatment and about staying in school. During his stay he denied any further thoughts or impulses to hurt himself. His mood was improved. He said he had learned additional coping strategies and now knows that he can call his parents anytime of the night or day when he is feeling sad. Multiple referrals have been made for outpatient therapy however we are having difficulty finding somebody in network with his insurance at this time. The process will continue until we find one and he will be discharged today. DAY OF DISCHARGE ASSESSMENT: Today the patient is requesting discharge. He feels ready to return to school. His parents are coming to town to pick him up. He continues to deny any suicidal thinking or thoughts to self injure. His sleep and appetite have been good and he has been a good participant in group and individual counseling. Today he is casually dressed and lying in bed. He makes good eye contact. Gait and station is not observed. Affect is restricted. Speech is of normal rate volume and tone. Thoughts are organized, goal directed, and without evidence of thought disorder. Recent and remote memory are intact per conversation. Intelligence is estimated to be average. Insight and judgment are improved over admission. Laboratory Test 05/02/17 22:45 05/02/17 23:43 Urine Color DK YELLOW Urine Appearance CLOUDY Urine pH 5.5 Urine Specific [place] 1.036 Urine Protein 2+ Urine Glucose (UA) NEG Urine Ketones TRACE Urine Occult Blood NEG Urine Nitrite NEG Urine Bilirubin 1+ Urine Urobilinogen NEG Urine Leukocyte Esterase NEG Urine WBC (Auto) 1-5 Urine RBC (Auto) 0-4 Urine Hyaline Casts (Auto) 10-30 Urine Epithelial Cells (Auto) >30 Urine Bacteria (Auto) NEG Urine Renal Epithelial Cells Urine Pathogenic Casts 5-10 GRANULAR CASTS Urine Mucus PRESENT Urine Opiates Screen NEG Urine Methadone, Qualitative NEG Urine Barbiturates NEG Urine Phencyclidine (PCP) Level NEG Ur Amphetamine/Methamphetamine NEG MDMA (Ecstasy) Screen NEG Urine Benzodiazepines Screen NEG Urine Cocaine Metabolite NEG Urine Marijuana (THC) POS Urine Marijuana (THC Carboxy Acid) Pending White Blood Count 10.34 Red Blood Count 4.84 Hemoglobin 14.1 Hematocrit 42.4 Mean Corpuscular Volume 87.6 Mean Corpuscular Hemoglobin 29.1 Mean Corpuscular Hemoglobin Concent 33.3 Platelet Count 235 Mean Platelet Volume 9.8 Neutrophils (%) (Auto) 67.9 Lymphocytes (%) (Auto) 20.2 Monocytes (%) (Auto) 8.8 Eosinophils (%) (Auto) 2.6 Basophils (%) (Auto) 0.5 Neutrophils # (Auto) 7.02 Lymphocytes # (Auto) 2.09 Monocytes # (Auto) 0.91 Eosinophils # (Auto) 0.27 Basophils # (Auto) 0.05 RDW Standard Deviation 41.7 RDW Coefficient of Variation 13.0 Immature Granulocyte % (Auto) 0.0 Immature Granulocyte # (Auto) 0.00 Sodium Level 144 Potassium Level 3.5 Chloride Level 108 Carbon Dioxide Level 28 Anion Gap 8.0 Blood Urea Nitrogen 7 Creatinine 0.93 Est Creatinine Clear Calc Drug Dose 170.9 Estimated GFR () 136.5 Estimated GFR (Non- 117.8 BUN/Creatinine Ratio 8.0 Random Glucose 100 Calcium Level 8.8 Total Bilirubin 0.5 Aspartate Amino Transferase (AST) 21 Alanine Aminotransferase (ALT) 29 Alkaline Phosphatase 92 Total Protein 6.9 Albumin 4.0 Globulin 2.8 Albumin/Globulin Ratio 1.4 Thyroid Stimulating Hormone (TSH) 2.860 Salicylates Level < 1.7 Acetaminophen Level < 2 Ethyl Alcohol mg/dL < 3.0 Total Time Total Time Spent (min): Greater than 30 minutes Total Time Included: examination of the patient, discharge planning, medication reconciliation, communication with other providers Tobacco Cessation at Discharge Smoking Status: Never Smoker FDA approved Prescription: non-smoker
== END 2017-05-05 10:05 | disposition home or self-care (01) | DRG 881 ==
LOC: EDBD 22:30 → C.EDA 22:31 → C.MHU 05-03 02:23
PROVIDERS: ADMIT Psychiatry & Neurology Psychiatry; ATTEND Psychiatry & Neurology Psychiatry
DX: F32.9 Major depressive disorder, single episode, unspecified (principal); S61.512A Laceration without foreign body of left wrist, initial encounter; X78.9XXA Intentional self-harm by unspecified sharp object, initial encounter; Z91.5 Personal history of self-harm